=== PATIENT | male | born 1995 | race Caucasian/White ===

== ENCOUNTER 2017-07-25 17:28 | Emergency (ER) | payer OTHER, MEDICAID ==
[~2017-07-25] VITALS: Ht 180.3 cm; Wt 72.0 kg
[2017-07-25 17:29] VITALS: BP 133/83; PULSE 78; RESP 20; TEMP 99; O2SAT 99
--- NOTE | 2017-07-25 20:38 | RADRPT ---
EXAM DATE/TIME: 07/25/2017 19:54 [place] COMPARISON: No previous studies available for comparison. INDICATIONS : Testicular pain. MEDICAL HISTORY : None. SURGICAL HISTORY : None. ENCOUNTER: Initial ACUITY: 2 months PAIN SCORE: 3/10 LOCATION: Bilateral testicles. MEASUREMENTS: RIGHT TESTICLE: 4.8 x 3.2 x 2.2cm LEFT TESTICLE: 4.6 x 3.3 x 2.6 cm FINDINGS: RIGHT TESTICLE: Homogeneous echotexture without intra or extratesticular mass. Blood flow is symmetric and within no rmal limits. No varicocele. There is a small hydrocele. There is a small cystic structure in the rig ht epididymis measuring 4 x 4 mm. LEFT TESTICLE: Homogeneous echotexture without intra or extratesticular mass. Blood flow is symmetric and within no rmal limits. No varicocele. There is a small hydrocele. Epididymis is within normal limits. SCROTUM: Within normal limits. CONCLUSION: 1. Testicles are intrinsically normal. 2. Small cystic structure in the right head of the epididymis most consistent with a small spermatoce le. 3. Small hydroceles. Rohan Jaimes MD on July 25, 2017 at 20:35 Board Certified Radiologist. This report was verified electronically.
[2017-07-25] MEDS ORDERED: AZITHROMYCIN PWD FOR SUSP 1 GM PACKET PO ONE (21:00)
[2017-07-25] MEDS ORDERED: LIDOCAINE HCL 1% 50 ML VIAL IM ONE (21:00)
[2017-07-25] MEDS ORDERED: cefTRIAXone 250 MG VIAL IM ONE (21:00)
--- NOTE | 2017-07-25 21:10 | PD ---
HPI Chief Complaint: Complaint Time Seen by Provider: 20:37 Travel History International Travel<30 days: No Contact w/Intl Traveler<30days: No Traveled to known affect area: No History of Present Illness HPI Is a well 22-year-old presents to the emergency department for right testicular pain. Symptoms been ongoing for the past several weeks to months. He was seen previously for this. He reported negative workup likely an ultrasound and urine testing including testing for STDs. He sexually active with multiple partners. No symptoms in his partners that he knows of. He denies any dysuria , or penile discharge. Pain is mostly in the right testicle little bit the left as well. Pain is constant and sometimes a little bit worsened after working rate does some lifting, but not really associated or exacerbated by lifting. No bulges or hernias. History Past Medical History Medical History: Denies Significant Hx Tetanus Vaccination: Unknown Influenza Vaccination: No Past Surgical History Surgical History: No Previous Surgery Social History Alcohol Use: No Tobacco Use: No Allergies-Medications (Allergen,Severity, Reaction): Coded Allergies: No Known Allergies (Unverified , 07/25/17) Reported Meds & Prescriptions Reported Meds & Active Scripts Active No Active Prescriptions or Reported Medications Review of Systems Except as stated in HPI: all other systems reviewed are Neg Physical Exam Narrative GENERAL: Well-appearing 22-year-old man, no acute distress. SKIN: Focused skin assessment warm/dry. CARDIOVASCULAR: Regular rate and rhythm. No murmur appreciated. RESPIRATORY: No accessory muscle use. Clear to auscultation. Breath sounds equal bilaterally. GASTROINTESTINAL: Abdomen soft, non-tender, nondistended. Hepatic and splenic margins not palpable. MUSCULOSKELETAL: No obvious deformities. No clubbing. No cyanosis. No edema. : Normal except female genitalia. Uncircumcised. A little bit of pain in the epididymis. He localizes pain to the superior aspect of the right testicle. Data Data Last Documented VS Vital Signs Date Time Temp Pulse Resp B/P (MAP) Pulse Ox O2 Delivery O2 Flow Rate FiO2 07/25/17 17:29 99.0 78 20 133/83 (100) 99 Room Air Orders Orders Us Testicles W Doppler (07/25/17 ) Urinalysis - C+S If Indicated (07/25/17 20:38) Gc And Chlamydia Pcr (9/23/17 20:38) Azithromycin Powd Pack (Zithromax Powd P (07/25/17 21:00) Ceftriaxone Inj (Rocephin Inj) (07/25/17 21:00) Lidocaine 1% Inj (50 Ml) (Xylocaine 1% I (07/25/17 21:00) [facility] Medical Decision Making Medical Screen Exam Complete: Yes Emergency Medical Condition: Yes Interpretation(s) Ultrasound: Right spermatocele. Differential Diagnosis Epididymitis, spermatocele, varicocele, orchitis, other Narrative Course Medical decision making 22 year-old male for right sided testicular pain that appears to coincide with the spermatic see a. He's also had high risk for epididymitis. Reportedly workup negative in the past. Recommend empiric treatment for epididymitis, supportive treatment for spermatocele and outpatient follow-up. Diagnosis Primary Impression: Spermatocele Additional Instructions: Follow-up with urology as discussed. Use NSAIDs as needed for pain. Wear tight fitting undergarments for increased comfort especially while working. Scripts No Active Prescriptions or Reported Meds Disposition: 01 DISCHARGE HOME Condition: Stable Kieran Silva MD Jul 25, 2017 21:10
[2017-07-25 21:41] LABS: BLOOD, URINE NEG (NEG); GLUCOSE,URINE NEG (NEG); HYALINE CAST, URINE 1 /lpf (RARE); KETONE, URINE NEG (NEG); MUCUS URINE FEW /lpf (OCC); NITRITE,URINE NEG (NEG); URINE COLOR LIGHT-YELLOW (YELLW/STRAW)
[2017-07-25 21:43] LABS: COMMENT (UR) CULT NOT INDICATED; CULTURE IF INDICATED CULT NOT INDICATED
[2017-07-25 23:29] LABS: CHLAMYDIA PCR NOT DETECTED (NOT DETECT); NEISSERIA PCR NOT DETECTED (NOT DETECT)
== END 2017-07-25 21:45 | disposition home or self-care (01) ==
LOC: NEPC 17:28
DX: N43.41 Spermatocele of epididymis, single (principal)
CPT/HCPCS: 76870; 81001; 87491; 87591; 93975; 96372; 99285; J0696